=== PATIENT | female | born 1985 | race Caucasian/White ===

== ENCOUNTER → 2024-04-29 07:03 | Outpatient (REF) | payer BC, SELFPAY | LOC: HWWDC 07:03 | PROVIDERS: ATTENDING PHYSICIAN Nurse Practitioner Family | DX: Z12.31 Encounter for screening mammogram for malignant neoplasm of breast (principal) | CPT/HCPCS: 77063; 77067 ==

== ENCOUNTER → 2024-11-02 07:24 | Outpatient (REF) | payer BC, SELFPAY | LOC: RAD 07:24 | PROVIDERS: ATTENDING PHYSICIAN Physician Assistant; FAMILY PHYSICIAN Family Medicine | DX: R22.1 Localized swelling, mass and lump, neck (principal) | CPT/HCPCS: 76536 ==

== ENCOUNTER → 2025-04-30 06:55 | Outpatient (REF) | payer BC, SELFPAY | LOC: HWWDC 06:55 | PROVIDERS: ATTENDING PHYSICIAN Student in an Organized Health Care Education/Training Program; FAMILY PHYSICIAN Family Medicine | DX: Z12.31 Encounter for screening mammogram for malignant neoplasm of breast (principal) | CPT/HCPCS: 77063; 77067 ==